=== PATIENT | male | born 1995 | race African-American/Black ===

== ENCOUNTER 2025-02-04 14:59 | Emergency (ER) | payer OTHER ==
[~2025-02-04] VITALS: Ht 175.3 cm; Wt 63.5 kg
[2025-02-04 15:19] VITALS: PULSE 80; RESP 18
[2025-02-04 15:29] VITALS: BP 152/88; O2SAT 98
== END 2025-02-04 15:28 | disposition home or self-care (01) ==
LOC: FSED 15:04
DX: R05.9 Cough, unspecified (principal); R09.89 Other specified symptoms and signs involving the circulatory and respiratory systems
CPT/HCPCS: 99282